=== PATIENT | male | born 1940 | race Caucasian/White ===

== ENCOUNTER 2018-07-29 20:24 | Emergency (ER) | payer MEDICARE, OTHER ==
[~2018-07-29] VITALS: Ht 170.2 cm; Wt 65.3 kg
[2018-07-29] MEDS ORDERED: EUTHYROX100 MCG PO (20:33)
[2018-07-29] MEDS ORDERED: SORINE 80 MG TA80 M1 PO (20:33)
[2018-07-29] MEDS ORDERED: VITAMIN B-12500 MC5 PO (20:34)
[2018-07-29] MEDS ORDERED: LOPRESSOR50 PO (20:34)
[2018-07-29] MEDS ORDERED: SPIRONOLACTONE25 M1 PO (20:35)
[2018-07-29] MEDS ORDERED: COUMADIN 5 MG TA5 M1 PO (20:35)
[2018-07-29] MEDS ORDERED: PROBIOTIC1 EAC1 PO (20:35)
[2018-07-29] MEDS ORDERED: MYRBETRIQ50 MG PO (20:35)
[2018-07-29] MEDS ORDERED: NATURAL LUTEIN20 MG PO (20:35)
[2018-07-29] MEDS ORDERED: VITAMIN D3400 UNIT PO (20:36)
[2018-07-29] MEDS ORDERED: SENNA8.6 MG PO (20:36)
[2018-07-29] MEDS ORDERED: ROSADAN 0.75%1 EAC1 TOP (20:36)
[2018-07-29] MEDS ORDERED: SIMVASTATIN40 MG PO (20:36)
[2018-07-29] MEDS ORDERED: TACROLIMUS0.5 G1 TOP (20:37)
[2018-07-29] MEDS ORDERED: HUMALOG100 UNIT/1 SUBQ (20:57)
[2018-07-29] MEDS ORDERED: LANTUS100 UNIT/M SUBQ (20:58)
[2018-07-29] MEDS ORDERED: PRAVASTATIN SOD20 MG PO (20:59)
[2018-07-29] MEDS ORDERED: ARICEPT 5 MG TAB5 MG PO (21:00)
[2018-07-29] MEDS ORDERED: NAMENDA 10 MG T10 MG PO (21:00)
[2018-07-29] MEDS ORDERED: SYNTHROID100 MC1 PO (21:00)
[2018-07-29] MEDS ORDERED: VASOTEC 2.5MG2.5 M1 PO (21:01)
[2018-07-29] MEDS ORDERED: NORVASC10 MG PO (21:01)
[2018-07-29 21:02] LABS: HEMOGLOBIN 11.8 gm/dL (14.0-18.0); MCH 33.9 pg (26.0-34.0); MCHC 33.6 g/dL (28.0-37.0); MCV 100.9 fL (80.0-100.0); MPV 8.6 fl. (7.2-11.1); NUCLEATED RBCS 0 /100WBC; PLATELET COUNT* 164 thou/uL (150-400); RBC 3.47 mil/uL (4.50-6.00); RDW-CV 14.4 % (10.5-14.5); WBC 6.8 thou/uL (4.0-11.0)
[2018-07-29 21:21] LABS: ANION GAP 6 mmol/L (7-16); BUN 33 mg/dL (7-18); CHLORIDE 105 mmol/L (98-107); CO2 26 mmol/L (21-32); CREATININE 1.4 mg/dL (0.6-1.3); GLUCOSE 113 mg/dL (70-99); POTASSIUM 4.8 mmol/L (3.5-5.1); SODIUM 137 mmol/L (136-145)
[2018-07-29 21:28] LABS: ALBUMIN 3.8 g/dL (3.4-5.0); ALKALINE PHOSPHATASE 87 U/L (46-116); LIPASE 68 U/L (73-393); SGOT 28 U/L (15-37); SGPT 16 U/L (30-65); TOTAL BILIRUBIN 0.3 mg/dL (<0.1-1.0); TOTAL PROTEIN 6.7 g/dL (6.4-8.2); TROPONIN-I LEVEL <0.06 ng/mL (<0.06)
[2018-07-29 22:15] LABS: ABSOLUTE EOSINOPHILS 0.1 thou/uL (0.0-0.7); ABSOLUTE LYMPHOCYTES 0.8 thou/uL (0.8-5.3); ABSOLUTE MONOCYTES 0.3 thou/uL (0.0-1.2); ABSOLUTE NEUTROPHILS 5.6 thou/uL (1.6-8.1)
[2018-07-29 22:16] LABS: PLATELET ESTIMATE ADEQUATE
[2018-07-29 22:45] VITALS: BP 172/57
== END 2018-07-29 22:45 | disposition home or self-care (01) ==
LOC: M.ERS 20:24
PROVIDERS: Emergency Medicine
DX: E11.649 Type 2 diabetes mellitus with hypoglycemia without coma (principal); Z89.512 Acquired absence of left leg below knee

== ENCOUNTER 2020-02-26 16:48 | Emergency (ER) | payer MEDICARE, OTHER ==
[~2020-02-26] VITALS: Ht 170.2 cm; Wt 69.8 kg
[~2020-02-26 16:48] MED LIST: ARICEPT 5 MG TAB5 MG PO; COUMADIN 5 MG TA5 M1 PO; EUTHYROX100 MCG PO; HUMALOG100 UNIT/1 SUBQ; LANTUS100 UNIT/M SUBQ; LOPRESSOR50 PO; MYRBETRIQ50 MG PO; NAMENDA 10 MG T10 MG PO; NATURAL LUTEIN20 MG PO; NORVASC10 MG PO; PRAVASTATIN SOD20 MG PO; PROBIOTIC1 EAC1 PO; ROSADAN 0.75%1 EAC1 TOP; SENNA8.6 MG PO; SIMVASTATIN40 MG PO; SORINE 80 MG TA80 M1 PO; SPIRONOLACTONE25 M1 PO; SYNTHROID100 MC1 PO; TACROLIMUS0.5 G1 TOP; VASOTEC 2.5MG2.5 M1 PO; VITAMIN B-12500 MC5 PO; VITAMIN D3400 UNIT PO
[2020-02-26 18:12] LABS: ABSOLUTE EOSINOPHILS 0.1 thou/uL (0.0-0.7); ABSOLUTE LYMPHOCYTES 0.4 thou/uL (0.8-5.3); ABSOLUTE MONOCYTES 0.4 thou/uL (0.0-1.2); ABSOLUTE NEUTROPHILS 4.5 thou/uL (1.6-8.1); BASOPHILS 0.9 %; EOSINOPHILS 2.2 %; HEMATOCRIT 33.5 % (42.0-52.0); HEMOGLOBIN 11.5 gm/dL (14.0-18.0); LYMPHOCYTES 8.1 %; MCH 34.4 pg (26.0-34.0); MCHC 34.3 g/dL (28.0-37.0); MCV 100.2 fL (80.0-100.0); MONOCYTES 7.8 %; MPV 8.3 fl. (7.2-11.1); NUCLEATED RBCS 0 /100WBC; PLATELET COUNT* 187 thou/uL (150-400); RBC 3.34 mil/uL (4.50-6.00); RDW-CV 13.9 % (10.5-14.5); WBC 5.5 thou/uL (4.0-11.0)
[2020-02-26 18:17] LABS: CALCIUM 8.2 mg/dL (8.5-10.1); CREATININE 1.2 mg/dL (0.6-1.3); POTASSIUM 3.8 mmol/L (3.5-5.1)
[2020-02-26 18:20] LABS: URINE BILIRUBIN NEGATIVE (Negative); URINE BLOOD NEGATIVE (Negative); URINE CLARITY CLEAR; URINE COLOR YELLOW; URINE GLUCOSE-RANDOM NEGATIVE (Negative); URINE KETONES NEGATIVE (Negative); URINE LEUKOCYTES-REFLEX NEGATIVE (Negative); URINE NITRITE-REFLEX NEGATIVE (Negative); URINE PROTEIN NEGATIVE (Negative); URINE SPECIFIC GRAVITY 1.025 (1.005-1.030)
[2020-02-26 18:22] LABS: ALBUMIN 3.6 g/dL (3.4-5.0); TOTAL BILIRUBIN 0.4 mg/dL (<0.1-1.0); TOTAL PROTEIN 6.5 g/dL (6.4-8.2)
[2020-02-26 18:42] VITALS: BP 122/70
--- NOTE | 2020-02-27 10:09 | EKG ---
[place] [address] ELECTROCARDIOGRAM REPORT Name: LUIS CASTRO Room: [facility]#: [id number] Admission: 02/26/20 Attend Phys: Discharge: 02/26/20 Date of : 36 Date of Service: 02/26/20 1653 Report #: [id number] THIS REPORT FOR: //name// [facility] ED Test Date: 2020-02-26 Test Time: 16:53:47 Pat Name: LUIS CASTRO Department: Room: Gender: Radiology Assistant: [facility] : 1940 Requested By: Annamarie English Order Number: [id number] MD: Oliver Wang Measurements Intervals [place] Rate: 63 P: 137 TN: 161 QRS: -25 QRSD: 101 T: 70 QT: 439 QTc: 450 Interpretive Statements Sinus rhythm Borderline left axis deviation Abnormal R-wave progression, early transition No previous ECG available for comparison Electronically Signed On 02-27-2020 10:08:56 CDT by Oliver Wang [email or web address] <ELECTRONICALLY SIGNED> By: Oliver Wang MD, [facility] 02/27/20 1008 1653 165 Oliver Wang MD, [facility] /EPI
== END 2020-02-26 18:43 | disposition home or self-care (01) ==
LOC: M.ERS 16:48
PROVIDERS: Personal Emergency Response Attendant
DX: S50.311A Abrasion of right elbow, initial encounter (principal); S80.211A Abrasion, right knee, initial encounter; E11.649 Type 2 diabetes mellitus with hypoglycemia without coma; Z79.4 Long term (current) use of insulin; W01.0XXA Fall on same level from slipping, tripping and stumbling without subsequent striking against object, initial encounter; Y93.89 Activity, other specified; Y92.89 Other specified places as the place of occurrence of the external cause; Y99.8 Other external cause status